=== PATIENT | female | born 1945 | race American Indian/Alaskan Native ===

== ENCOUNTER 2017-01-17 15:19 | Emergency (ER) | payer MEDICARE ==
[2017-01-17 17:19] LABS: Bilirubin,Urine NEG (Negative); Blood,Urine SM (Negative); Ketones,Urine NEG (Negative); Leukocyte Esterase,Urine MOD (Negative); Mucus,Urine FEW /HPF; Nitrite,Urine NEG (Negative); Protein,Urine <15 mg/dL mg/dL (Negative); Urobilinogen,Urine < 2.0 mg/dL (<2.0)
[2017-01-17] MEDS ORDERED: HYDROGEN PEROXIDE TP ONE (19:43)
[2017-01-17] MEDS ORDERED: LIDOCAINE VISCOUS 2% PO ONE (19:43)
[2017-01-17] MEDS ORDERED: NACL 0.9% 500 ML IR ONE (19:47)
--- NOTE | 2017-01-17 19:48 | Emergency Department Report ---
HPI - General Chief Complaint: Earache Time Seen by Provider: 01/17/17 17:56 - HPI HPI: Is a 71-year-old female presents to the ED is complaining of ear wax bilaterally times a month. Patient states she usually goes to her doctor prior to moving here to have right ear cleaned. She recently moved to [place] and does not have a primary care. Patient's states she has no loss of hearing. Patient also states she felt a tingling sensation last night when she urinated. She denies ear pain bilaterally. She denies fevers chills/nausea/vomiting abdominal pain or any other problems ED Past Medical Hx - Past Medical History Hx Hypertension: Yes Hx Diabetes: Yes Hx Arthritis: Yes - Surgical History Additional Surgical History: - Social History Smoking Status: Never Smoker Substance Use Type: None - Medications Home Medications: Home Medications Medication Instructions Recorded Confirmed Last Taken Type Fluticasone [Flonase] 1 spray NS QDAY #1 bottle 07/29/15 08/09/15 Unknown Rx Ibuprofen [Motrin 600 MG tab] 600 mg PO Q8H PRN #30 tablet 07/29/15 08/09/15 Unknown Rx guaiFENesin/CODEINE [Robitussin AC] 5 ml PO Q6HR #120 ml 07/29/15 08/09/15 Unknown Rx Azithromycin [Zithromax TAB] 250 mg PO QDAY #5 tablet 08/09/15 Unknown Rx Benazepril HCl [Lotensin] 40 mg PO DAILY 08/09/15 08/09/15 08/09/15 History amLODIPine [Norvasc] 10 mg PO DAILY 08/09/15 08/09/15 08/09/15 History metFORMIN [Glucophage] 850 mg PO DAILY 08/09/15 08/09/15 08/09/15 History Carbamide Peroxide 6.5% [Ear Wax 2 drops OT BID #1 bottle 01/17/17 Unknown Rx Drops] Phenazopyridine [Pyridium] 100 mg PO BID #8 tab 01/17/17 Unknown Rx ED Review of Systems ROS: Stated complaint: STUFFED UP EAR,BURNING URINARTION Other details as noted in HPI Constitutional: denies: chills, fever Eyes: denies: eye pain, eye discharge, vision change ENT: denies: ear pain, throat pain Respiratory: denies: cough, shortness of breath, wheezing Cardiovascular: denies: chest pain, palpitations Endocrine: no symptoms reported Gastrointestinal: denies: abdominal pain, nausea, vomiting, diarrhea Genitourinary: denies: urgency, dysuria, discharge Musculoskeletal: denies: back pain, joint swelling, arthralgia Skin: denies: rash, lesions Neurological: denies: headache, weakness, paresthesias Psychiatric: denies: anxiety, depression Hematological/Lymphatic: denies: easy bleeding, easy bruising Physical Exam - Physical Exam Vital Signs: Vital Signs 01/17/17 01/17/17 16:07 16:18 Temperature 98.4 F 98.4 F Pulse Rate 55 L 55 L Respiratory 16 18 Rate Blood Pressure 158/67 Blood Pressure 158/67 [Right] O2 Sat by Pulse 98 98 Oximetry Physical Exam: GENERAL: Alert and oriented x3, no apparent distress, Normal Gait, atraumatic. HEAD: Head is normocephalic and a-traumatic. EYES: Extra ocular muscles are intact. Pupils are equal, round, and reactive to light and accommodation. EARS: symetrical, atraumatic, non tender, ear canal filled with moderate cerumen bilaterally, tympanic membrance not visualized bilaterally. gross auditory nml bilaterally. NOSE: Nose symetrical, Nontender,Nares appeared normal. MOUTH:Mouth is well hydrated and without lesions. Tonsils nonerythematous or swollen, Uvula midline, Tongue not elevated. Mucous membranes are moist. Posterior pharynx clear, no exudate or lesions. Patent airways. NECK: Supple. Non edematous, No carotid bruits. No lymphadenopathy or thyromegaly. LUNGS: Symetrical with respiration, No wheezing, no rales or crackles, CTAB. HEART: S1, S2 present, regular rate and rhythm without murmur, no rubs, no gallops. SKIN: Warm and dry, No lesions, No ulceration or induration present. ED Course Vital Signs 01/17/17 01/17/17 16:07 16:18 Temperature 98.4 F 98.4 F Pulse Rate 55 L 55 L Respiratory 16 18 Rate Blood Pressure 158/67 Blood Pressure 158/67 [Right] O2 Sat by Pulse 98 98 Oximetry ED Medical Decision Making - Medical Decision Making 71-year-old presents with cerumen impaction of both ears ED course: Urinalysis was ordered. Urinalysis negative . Discussed findings with patient. Discussed with pt 2-3 days of pyrydium for urinary pain. Discussed the patient will follow up with primary care physician as referred. Ear wax removed bilaterally with 100 mL of normal saline flush Ear exam normal after flushing. Patient tolerated procedure well. Vital signs are normal patient is in no acute distress Critical care attestation.: If time is entered above; I have spent that time in minutes in the direct care of this critically ill patient, excluding procedure time. ED Disposition Clinical Impression: Impacted cerumen of both ears Disposition: DISCHARGED TO HOME OR SELFCARE Is pt being admited?: No Does the pt Need Aspirin: No Condition: Stable Instructions: Cerumen Impaction (ED), Carbamide Peroxide (Into the ear) Prescriptions: Carbamide Peroxide 6.5% [Ear Wax Drops] 2 drops OT BID #1 bottle Phenazopyridine [Pyridium] 100 mg PO BID #8 tab Referrals: PRIMARY CAREMD [Primary Care Provider] - 3-5 Days YAHIR RAYA MD [Referring] - 3-5 Days [facility] [Outside] - 3-5 Days KERI Ordoñez [facility] [Outside] - 3-5 Days Forms: Work/School Release Form(ED)
[2017-01-18 04:38] VITALS: BP 148/74
== END 2017-01-17 21:10 | disposition home or self-care (01) ==
LOC: ED 15:19
DX: H61.23 Impacted cerumen, bilateral (principal); I10 Essential (primary) hypertension; E11.9 Type 2 diabetes mellitus without complications; M19.90 Unspecified osteoarthritis, unspecified site
CPT/HCPCS: 81001; 82962